=== PATIENT | female | born 1995 | race Two or more races ===

== ENCOUNTER 2016-11-08 11:58 | Emergency (ER) | payer OTHER ==
[~2016-11-08] VITALS: Ht 162.6 cm; Wt 53.5 kg
[2016-11-08 11:58] VITALS: BP 115/63
[2016-11-08] MEDS ORDERED: AMPH15TA2 PO (12:33)
[2016-11-08] MEDS ORDERED: QUET25TA PO (12:33)
--- NOTE | 2016-11-08 13:21 | NUR ---
Patient discharged to home in stable condition. Written and verbal after care instructions given. Patient verbalizes understanding of instruction.
== END 2016-11-08 13:23 | disposition home or self-care (01) ==
LOC: ER 11:59
DX: S20.212A Contusion of left front wall of thorax, initial encounter (principal); S80.01XA Contusion of right knee, initial encounter; S80.02XA Contusion of left knee, initial encounter; V43.52XA Car driver injured in collision with other type car in traffic accident, initial encounter; Y93.89 Activity, other specified; Y92.488 Other paved roadways as the place of occurrence of the external cause; Y99.8 Other external cause status
CPT/HCPCS: 71010-TC; 84703-TC; A4606; Z7610